=== PATIENT | female | born 1980 | race Caucasian/White ===

== ENCOUNTER 2016-05-10 08:05 | Inpatient (IN) | payer BC ==
[2016-05-10] MEDS ORDERED: Penicillin G Potassium 5 MILLUNITS in Sodium Chloride 0.9% 100 ML IV ONE (08:19)
[2016-05-10] MEDS ORDERED: Lidocaine 1% 30 ML SDV INJECT PRN (08:19)
[2016-05-10] MEDS ORDERED: Acetaminophen 325 MG Tab PO PRN (08:19)
[2016-05-10] MEDS ORDERED: Carboprost Tromethamine 250 MCG/1 ML Amp IM PRN ×2 (08:19→15:58)
[2016-05-10] MEDS ORDERED: Sodium Chloride 0.9% 10 ML Syringe FLUSH PRN ×2 (08:19→15:58)
[2016-05-10] MEDS ORDERED: Lactated Ringers 500 ML IV ONE (08:19)
[2016-05-10] MEDS ORDERED: Misoprostol 400 MCG (4 X 100 MCG TAB) RECTAL PRN ×2 (08:19→15:58)
[2016-05-10] MEDS ORDERED: fentaNYL 100 MCG/2 ML SDV IVPUSH PRN (08:19)
[2016-05-10] MEDS ORDERED: Ondansetron 4 MG/2 ML SDV IV PRN (08:19)
[2016-05-10] MEDS ORDERED: Methylergonovine 0.2 MG/1 ML Amp IM PRN (08:19)
--- NOTE | 2016-05-10 08:28 | PCM.LDHP ---
<Brielle Godoy - Last Filed: 05/10/16 08:22> L&D History of Present Illness - General Date of Service: 05/10/16 Admit Problem/Dx: Admission Diagnosis/Problem Admission Diagnosis/Problem Source of Information: Patient History Limitations: Reports: No limitations - History of Present Illness Introduction:: Patient comes in today for induction of labor. Reports not having any contractions at this point in time but has been feeling like she has had " period cramping". She also reports that she still feels like she has a yeast infection at this point in time. has been complicated by thrombocytopenia and history of genital HSV infection for which she has been taking valtrex for prophylaxis. Location, : Reports: Uterus Quality: Reports: Other (period cramp like) Severity: mild Associated Symptoms: Denies: vaginal bleeding, vaginal fluid - Related Data Allergies/Adverse Reactions: Allergies Allergy/AdvReac Type Severity Reaction Status Date / Time No Known Allergies Allergy Verified 12/09/15 09:34 Home Medications: Home Meds Vitamins 1 tab PO DAILY 02/01/15 [History] Amoxicillin 250 mg PO TID 12/09/15 [History] Docosahexanoic Acid [DHA] 1 tab PO DAILY 12/09/15 [History] Past Medical History - Past Health History Medical/Surgical History: Denies Medical/Surgical History HEENT History: Reports: None Cardiovascular History: Reports: None Respiratory History: Reports: None Gastrointestinal History: Reports: None Genitourinary History: Reports: None [employer] History: Reports: , Therapeutic (x1) : 3 Para: 1 LMP (Approximate): Other OB/BYN History: herpes, treated with Acyclovir. history of abnormal pap ~ 2002 follow up was negative Musculoskeletal History: Reports: None Neurological History: Reports: None Psychiatric History: Reports: None Endocrine/Metabolic History: Reports: None Hematologic History: Reports: None Immunologic History: Reports: None Oncologic (Cancer) History: Reports: None Dermatologic History: Reports: None - Infectious Disease History Infectious Disease History: Reports: Chicken pox, Herpes - Past Surgical History HEENT Surgical History: Reports: Oral surgery (wisdom/baby teeth extraction), Other (see below) GI Surgical History: Reports: Appendectomy Other Surgical History Comment: Denies any past surgeries. Social & Family History - Family History Family Medical History: Noncontributory Cardiac: Reports: Afib (mother), MO (Maternal grandmother and grandfather) Oncologic: Reports: Bladder (maternal grandmother), Breast (maternal grandmother ), Other (see below) (paternal grandfather unknown type) - Tobacco Use Smoking Status *Q: Former Smoker Tobacco Use Within Last Twelve Months: No Used Tobacco, but Quit: Yes Month Tobacco Last Used: 12/28/12 Second Hand Smoke Exposure: No - Caffeine Use Caffeine Use: Reports: None - Alcohol Use Days Per Week of Alcohol Use: 1 (abstains during ) Number of Drinks Per Day: 4 Total Drinks Per Week: 4 - Recreational Drug Use Recreational Drug Use: No - Sexual History Sexual History: Reports: Sexually active - Living Situation & Occupation Living situation: Reports: , with family 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) H&P Review of Systems - Review of Systems: Review Of Systems: See Below General: Denies: fever, chills HEENT: Reports: no symptoms Pulmonary: Denies: shortness of breath, wheezing, cough Cardiovascular: Denies: chest pain, palpitations Gastrointestinal: Denies: Abdominal pain, Nausea, Vomiting Genitourinary: Reports: vaginal discharge (still feels yeasty) Musculoskeletal: Reports: no symptoms Skin: Reports: no symptoms Psychiatric: Reports: no symptoms Neurological: Reports: no symptoms Immunologic: Reports: no symptoms L&D Exam - Exam Exam: See Below - Vital Signs Weight: 85.729 kg - OB Specific Contraction Intensity: Mild movement: active heart tones: present heart tones per min: 130 Heart Rate (FHR) Variability: Moderate (6-25 bmp) Presentation: Vertex - Exam General: alert, oriented HEENT: Conjunctiva clear, Pupils equal, Pupils reactive Neck: supple Lungs: Clear to auscultation, Normal respiratory effort Cardiovascular: regular rate, regular rhythm Abdomen: normal bowel sounds, soft Rectal Exam: Deferred Genitourinary: Deferred Back Exam: normal inspection, full range of motion Extremities: normal inspection. No: edema Skin: warm, dry, intact Neurological: cranial nerves intact (grossly intact) Psychiatric: alert, normal affect, normal mood - Problem List (1) Group B streptococcal bacteriuria SNOMED Code(s): 43832682 ICD Code: R82.71 - BACTERIURIA Status: Acute Current Visit: Yes (2) Genital herpes simplex SNOMED Code(s): 78359966 ICD Code: A60.00 - HERPESVIRAL INFECTION OF UROGENITAL SYSTEM, UNSPECIFIED Status: Acute Current Visit: Yes (3) Thrombocytopenia affecting SNOMED Code(s): 131090962 ICD Code: O99.119 - OTH DIS OF BLD/BLD-FORM ORG/IMMUN MECHNSM COMP PREG,UNSP TRI; D69.6 - THROMBOCYTOPENIA, UNSPECIFIED Status: Acute Current Visit: Yes (4) Rubella immune SNOMED Code(s): 392987439 ICD Code: Z78.9 - OTHER SPECIFIED HEALTH STATUS Status: Acute Current Visit: Yes (5) Short interval between pregnancies affecting in third trimester, antepartum SNOMED Code(s): 45694876, 86355772 ICD Code: O09.893 - SUPERVISION OF OTHER HIGH RISK PREGNANCIES, THIRD TRIMESTER Status: Acute Current Visit: Yes Problem List Initiated/Reviewed/Updated: Yes Assessment/Plan Comment:: 1. Induction of labor with pit 2.Thrombocytopenia affecting 3. History of herpes genitalis 4. Blood type A +, rubella immune, yeast infection, RPR nonreactive, HBsAg non reactive, HIV non reactive, GC/Chlamydia negative 5. 6. 40 weeks 0 days Plan 1. Induction with pit to start 2. Penicillin started for GBS bacturia 3. Valtrex has been used as prophylaxis of HSV infection no current infection or prodromal 4. Will treat yeast infection day 1 5. Monitor vitals and with tocometer per unit protocol 6. Will check blood work - see labs. <Mey Boothe - Last Filed: 05/10/16 13:18> L&D History of Present Illness - General Admit Problem/Dx: Patient Status Order with Admit Dx/Problem 05/10/16 08:20 Patient Status [ADT] Routine Patient Status: Admit to Inpatient Admission Diagnosis/Problem: care Reason for Admit: Induction of labor Nurse Unit Type: Labor and Delivery Admitting Physician: Mey Boothe Attending Physician: Mey Boothe Admission Diagnosis/Problem Admission Diagnosis/Problem care L&D Exam - Vital Signs Vital Signs: Last Vital Signs Temp 36.8 C 05/10/16 08:45 Pulse 72 05/10/16 09:20 Resp 16 05/10/16 09:20 BP 121/71 05/10/16 09:20 Pulse Ox - Patient Data Lab Results last 24 hrs: Laboratory Results - last 24 hr 05/10/16 Range/Units 08:35 WBC 7.8 (5.0-10.0) 10^3/uL RBC 4.20 (4.2-5.4) 10^6/uL Hgb 13.6 (12.0-16.0) g/dL Hct 39.3 (37.0-47.0) % MCV 93.6 (80-100) fL MCH 32.4 (27.0-34.0) pg MCHC 34.6 (33.0-35.0) g/dL Plt Count 125 L (150-450) 10^3/uL Result Diagrams: 05/10/16 08:35 Orders Last 24hrs: Active Orders 24 hr Category Date Time Status Patient Status [ADT] Routine ADT 05/10/16 08:20 Active Communication Order [RC] ASDIRECTED Care 05/10/16 08:20 Active Notify Provider Vital Signs OB [RC] ASDIRECTED Care 05/10/16 08:20 Active Notify Provider [RC] PRN Care 05/10/16 08:20 Active Pump Management, Intrathecal [RC] ASDIRECTED Care 05/10/16 08:19 Active Up ad Rosalind [RC] ASDIRECTED Care 05/10/16 08:20 Active Vital Signs [RC] PER UNIT ROUTINE Care 05/10/16 08:20 Active Clear Liquid Diet [DIET] Diet 05/10/16 Breakfast Active Acetaminophen [Tylenol] Med 05/10/16 08:19 Active 650 mg PO Q4H PRN Carboprost Tromethamine [Hemabate DS] Med 05/10/16 08:19 Active 250 mcg IM ASDIRECTED PRN Lactated Ringers [Ringers, Lactated] 1,000 ml Med 05/10/16 08:30 Active IV ASDIRECTED Lidocaine 1% [Xylocaine-MPF 1%] Med 05/10/16 08:19 Active 10 ml INJECT ASDIRECTED PRN Methylergonovine [Methergine] Med 05/10/16 08:19 Active 0.2 mg IM ASDIRECTED PRN Misoprostol [Cytotec] Med 05/10/16 08:19 Active 800 mcg RECTAL ASDIRECTED PRN Ondansetron [Zofran] Med 05/10/16 08:19 Active 4 mg IV Q4H PRN Oxytocin/Normal Saline [Pitocin in NS 30 UNIT/500 ML] Med 05/10/16 08:45 Active 30 unit in 500 ml IV TITRATE Penicillin G Potassium [Pfizerpen] 3 millunits Med 05/10/16 12:00 Active Sodium Chloride 0.9% [Normal Saline] 100 ml IV Q4H Sodium Chloride 0.9% [Saline Flush] Med 05/10/16 08:19 Active 10 ml FLUSH ASDIRECTED PRN fentaNYL [Sublimaze] Med 05/10/16 08:19 Active 50 mcg IVPUSH Q1H PRN Saline Lock Insert [OM.PC] Routine Oth 05/10/16 08:20 Ordered Resuscitation Status Routine Resus Stat 05/10/16 08:19 Ordered Medication Orders Acetaminophen (Tylenol) 650 mg PO Q4H PRN PRN Reason: Pain (Mild 1-3) and fever Carboprost Tromethamine (Hemabate Ds) 250 mcg IM ASDIRECTED PRN PRN Reason: HEMORRHAGE Fentanyl (Sublimaze) 50 mcg IVPUSH Q1H PRN PRN Reason: Pain (moderate 4-6) Lactated Ringer's (Ringers, Lactated) 1,000 mls @ 125 mls/hr IV ASDIRECTED YAHIR Last Admin: 05/10/16 09:05 Dose: 125 mls/hr Penicillin G Potassium 3 (millunits/ Sodium Chloride) 100 mls @ 200 mls/hr IV Q4H YAHIR Last Admin: 05/10/16 13:01 Dose: 200 mls/hr Oxytocin/Sodium Chloride (Pitocin In Ns 30 Unit/500 Ml) 30 unit in 500 mls @ 2 mls/hr IV TITRATE YAHIR; 2 MUNITS/MIN PRN Reason: Protocol Last Titration: 05/10/16 12:43 Dose: 9 munits/min, 9 mls/hr Titration: 05/10/16 11:30 Dose: 8 munits/min, 8 mls/hr Titration: 05/10/16 11:00 Dose: 6 munits/min, 6 mls/hr Titration: 05/10/16 10:25 Dose: 4 munits/min, 4 mls/hr Admin: 05/10/16 09:46 Dose: 2 munits/min, 2 mls/hr Lidocaine HCl (Xylocaine-Mpf 1%) 10 ml INJECT ASDIRECTED PRN PRN Reason: Perineal Repair Methylergonovine Maleate (Methergine) 0.2 mg IM ASDIRECTED PRN PRN Reason: Hemorrhage Misoprostol (Cytotec) 800 mcg RECTAL ASDIRECTED PRN PRN Reason: Hemorrhage Ondansetron HCl (Zofran) 4 mg IV Q4H PRN PRN Reason: Nausea/Vomiting Sodium Chloride (Saline Flush) 10 ml FLUSH ASDIRECTED PRN PRN Reason: Keep Vein Open Assessment/Plan Comment:: Agree with student assessment and plan. IOL for discomfort of , thrombocytopenia and term . Platelets today 125,000. Will plan to AROM 4 hours after patient received her 1st dose of PCN for GBS. Anticipate vaginal delivery. Mey Boothe MD
[2016-05-10] MEDS ORDERED: Oxytocin/Normal Saline 30 UNIT/500 ML BAG IV SCH (08:45)
[2016-05-10] MEDS: Lactated Ringers 1,000 ML IV SCH ×2 (09:05→14:05)
[2016-05-10] MEDS ORDERED: Penicillin G Potassium 3 MILLUNITS in Sodium Chloride 0.9% 100 ML IV SCH (12:00)
[2016-05-10] MEDS ORDERED: Benzocaine/Menthol 20%-0.5% Spray 56 GM Canister TOP PRN (15:58)
[2016-05-10] MEDS ORDERED: Oxytocin 10 Units/1 ML SDV IM PRN (15:58)
[2016-05-10] MEDS ORDERED: Methylergonovine 0.2 MG Tab PO PRN (15:58)
[2016-05-10] MEDS ORDERED: Ibuprofen 800 MG Tab PO PRN (15:58)
[2016-05-10] MEDS ORDERED: Simethicone 80 MG Tab.Chew PO PRN (15:58)
--- NOTE | 2016-05-10 15:58 | PCM.DEL ---
L & D Note - General Info Date of Service: 05/10/16 Mother's Due Date: 05/10/16 - Delivery Note Labor: augmented by ARM, induced by oxytocin Delivery Outcome: Livebirth Delivery Method: Spontaneous Vaginal Delivery Presentation: Left Occiput Anterior (RAQUEL) Nuchal cord: none Anesthesia Type: Intrathecal Amniotic Fluid Description: Clear Episiotomy Type: None Laceration: 1st degree, labial (Left superior), perineal Suture type: vicryl Suture size: 3-0 Placenta: intact, spontaneous Cord: 3 vessels Estimated blood loss: 225 Resuscitation needed: Yes : bulb syringe, stimulated, warmed Score 1 min: 5 Score 5 min: 8 Delivery Comments (Free Text/Narrative):: 35-year-old, now , presented for induction of labor at 40w0d. Pitocin was started for induction of labor. PCN was started as patient had a GBS+ UTI during her . After 4 hours of PCN and pitocin, AROM was performed to augment labor. Clear amniotic fluid was noted. Patient progressed to complete dilation over the next 3-4 hours. Upon reaching complete dilation, patient pushed for about 15 minutes and delivered a viable male . Baby was taken to the warmer and was resuscitated. Apgars were 5 and 8 at 1 and 5 minutes respectively. Baby was returned to mom for skin to skin a short time later. Placenta delivered intact and spontaneously a short time later. Bleeding was initially brisk, but improved significantly with pitocin and uterine massage. A figure-of-8 suture was used to repeat a superior left labial laceration. A second figure-of-8 suture was used to repair a first degree perineal laceration. Bleeding was again noted to be appropriate. There were no complications. Mey Boothe MD Induction Criteria - Bullock Score Bullock Score Dilation: 3-4 cm Bullock Score Effacement: 60-70% Bullock Score 's Station: -2 Bullock Score Consistency: Soft Bullock Score Cervix Position: Posterior Bullock Score Total: 7 Bullock Score Presenting Part: Reports: Cephalic - Induction Gestational Age >/= 39 wks: Yes Estimated pelvis: Reports: Adequate Reassuring monitoring strip: Yes Absence of tachy systole: Yes - Augmentation Estimated Pelvis: Reports: Adequate weight estimated:: Reports: AGA Reassuring monitoring strip: Yes Absence of tachy systole: Yes - General Info Date of Service: 05/11/16 - Patient Data Vitals - most recent: Last Vital Signs Temp 36.4 C 05/10/16 11:30 Pulse 65 05/10/16 11:30 Resp 16 05/10/16 11:30 BP 121/65 05/10/16 11:30 Pulse Ox Weight - most recent: 85.729 kg I&O - last 24 hours: Intake & Output 05/10/16 05/10/16 05/10/16 06:59 14:59 22:59 Intake Total 100 Balance 100 Lab Results last 24 hrs: Laboratory Results - last 24 hr 05/10/16 Range/Units 08:35 WBC 7.8 (5.0-10.0) 10^3/uL RBC 4.20 (4.2-5.4) 10^6/uL Hgb 13.6 (12.0-16.0) g/dL Hct 39.3 (37.0-47.0) % MCV 93.6 (80-100) fL MCH 32.4 (27.0-34.0) pg MCHC 34.6 (33.0-35.0) g/dL Plt Count 125 L (150-450) 10^3/uL Med Orders - Current: Current Medications Acetaminophen (Tylenol) 650 mg PO Q4H PRN PRN Reason: Pain (Mild 1-3) and fever Carboprost Tromethamine (Hemabate Ds) 250 mcg IM ASDIRECTED PRN PRN Reason: HEMORRHAGE Fentanyl (Sublimaze) 50 mcg IVPUSH Q1H PRN PRN Reason: Pain (moderate 4-6) Lactated Ringer's (Ringers, Lactated) 1,000 mls @ 125 mls/hr IV ASDIRECTED YAHIR Last Admin: 05/10/16 14:05 Dose: 125 mls/hr Penicillin G Potassium 3 (millunits/ Sodium Chloride) 100 mls @ 200 mls/hr IV Q4H YAHIR Last Admin: 05/10/16 13:01 Dose: 200 mls/hr Oxytocin/Sodium Chloride (Pitocin In Ns 30 Unit/500 Ml) 30 unit in 500 mls @ 2 mls/hr IV TITRATE YAHIR; 2 MUNITS/MIN PRN Reason: Protocol Last Titration: 05/10/16 13:24 Dose: 11 munits/min, 11 mls/hr Lidocaine HCl (Xylocaine-Mpf 1%) 10 ml INJECT ASDIRECTED PRN PRN Reason: Perineal Repair Methylergonovine Maleate (Methergine) 0.2 mg IM ASDIRECTED PRN PRN Reason: Hemorrhage Misoprostol (Cytotec) 800 mcg RECTAL ASDIRECTED PRN PRN Reason: Hemorrhage Ondansetron HCl (Zofran) 4 mg IV Q4H PRN PRN Reason: Nausea/Vomiting Sodium Chloride (Saline Flush) 10 ml FLUSH ASDIRECTED PRN PRN Reason: Keep Vein Open Discontinued Medications Lactated Ringer's (Ringers, Lactated) 500 mls @ 999 mls/hr IV .BOLUS ONE Stop: 05/10/16 08:49 Penicillin G Potassium 5 (millunits/ Sodium Chloride) 100 mls @ 200 mls/hr IV ONETIME ONE Stop: 05/10/16 08:48 Last Admin: 05/10/16 09:10 Dose: 200 mls/hr - Problem List Review Problem List Initiated/Reviewed/Updated: Yes - My Orders Last 24 Hours: My Active Orders 05/10/16 08:19 Pump Management, Intrathecal [RC] ASDIRECTED Acetaminophen [Tylenol] 650 mg PO Q4H PRN Carboprost Tromethamine [Hemabate DS] 250 mcg IM ASDIRECTED PRN Lidocaine 1% [Xylocaine-MPF 1%] 10 ml INJECT ASDIRECTED PRN Methylergonovine [Methergine] 0.2 mg IM ASDIRECTED PRN Misoprostol [Cytotec] 800 mcg RECTAL ASDIRECTED PRN Ondansetron [Zofran] 4 mg IV Q4H PRN Sodium Chloride 0.9% [Saline Flush] 10 ml FLUSH ASDIRECTED PRN fentaNYL [Sublimaze] 50 mcg IVPUSH Q1H PRN Resuscitation Status Routine 05/10/16 08:20 Patient Status [ADT] Routine Communication Order [RC] ASDIRECTED Notify Provider Vital Signs OB [RC] ASDIRECTED Notify Provider [RC] PRN Up ad Rosalind [RC] ASDIRECTED Vital Signs [RC] PER UNIT ROUTINE Saline Lock Insert [OM.PC] Routine 05/10/16 08:30 Lactated Ringers [Ringers, Lactated] 1,000 ml IV ASDIRECTED 05/10/16 08:45 Oxytocin/Normal Saline [Pitocin in NS 30 UNIT/500 ML] 30 unit in 500 ml IV TITRATE 05/10/16 12:00 Penicillin G Potassium [Pfizerpen] 3 millunits Sodium Chloride 0.9% [Normal Saline] 100 ml IV Q4H 05/10/16 Breakfast Clear Liquid Diet [DIET] - Assessment Assessment:: 35-year-old now status post normal spontaneous vaginal delivery. --Left labial laceration and 1st degree perineal laceration repaired - Plan Plan:: 1. Initiate routine cares\ 2. consultation for desire to breastfeed 3. Will treat with Diflucan tomorrow for yeast infection 4. Will repeat CBC tomorrow to assess platelets. 5. Anticipate discharge 05/12/16, although patient is considering discharge at 24 hours. Mey Boothe MD
[2016-05-10] MEDS: Docusate Sodium 100 MG Cap PO PRN (23:58)
[2016-05-11] MEDS: Docusate Sodium 100 MG Cap PO PRN (08:42)
[2016-05-11] MEDS ORDERED: Prenatal Multivitamin with Calcium/Folic Acid/Iron Tab PO SCH (09:00)
[2016-05-11 09:02] VITALS: BP 103/54
--- NOTE | 2016-05-11 12:52 | PCM.DCSUM1 ---
<Brielle Godoy - Last Filed: 05/11/16 12:47> Discharge Summary - Hospital Course Free Text/Narrative:: patient is now a that delivered via vaginal delivery with pitocin induction at 40 weeks 0 days gestation. was complicated by HSV genitalis prophylactically treated with valtrex and Thrombocytopenia which will be followed up at her visit to ensure levels have normalized, Platelets as of 05/11/16 at 0605 were 104. Other than that hospital course was uncomplicated. - Discharge Data Discharge Date: 05/11/16 Discharge Disposition: Home, Self-Care 01 Condition: Good - Discharge Diagnosis/Problem(s) (1) Group B streptococcal bacteriuria SNOMED Code(s): 85589578 ICD Code: R82.71 - BACTERIURIA Status: Acute Current Visit: Yes (2) Genital herpes simplex SNOMED Code(s): 93048691 ICD Code: A60.00 - HERPESVIRAL INFECTION OF UROGENITAL SYSTEM, UNSPECIFIED Status: Acute Current Visit: Yes (3) Thrombocytopenia affecting SNOMED Code(s): 359626924 ICD Code: O99.119 - OTH DIS OF BLD/BLD-FORM ORG/IMMUN MECHNSM COMP PREG,UNSP TRI; D69.6 - THROMBOCYTOPENIA, UNSPECIFIED Status: Acute Current Visit: Yes (4) Rubella immune SNOMED Code(s): 649054321 ICD Code: Z78.9 - OTHER SPECIFIED HEALTH STATUS Status: Acute Current Visit: Yes (5) Short interval between pregnancies affecting in third trimester, antepartum SNOMED Code(s): 84717335, 77608229 ICD Code: O09.893 - SUPERVISION OF OTHER HIGH RISK PREGNANCIES, THIRD TRIMESTER Status: Acute Current Visit: Yes - Patient Summary/Data Consults: Consultations 05/10/16 16:04 Consult to Fabrication Mig Welder [CONS] Routine - Patient Instructions Diet: Regular Diet as Tolerated Activity: As Tolerated Driving: Do Not Drive Showering/Bathing: May Shower Notify Provider of: Fever, Increased Pain, Swelling and Redness, Drainage, Nausea and/or Vomiting - Discharge Plan Home Medications: Home Meds Vitamins 1 tab PO DAILY 02/01/15 [History] Acetaminophen [Tylenol] 650 mg PO Q4H PRN #0 tablet 05/11/16 [Rx] Docusate Sodium [Colace] 100 mg PO BID PRN #0 cap 05/11/16 [Rx] Ibuprofen [IJD: Ibuprofen] 800 mg PO Q8H PRN #0 tablet 05/11/16 [Rx] Referrals: Mey Boothe MD [Physician] - (6 weeks for check) - General Info Date of Service: 05/11/16 Admission Dx/Problem (Free Text: Patient Status Order with Admit Dx/Problem 05/10/16 08:20 Patient Status [ADT] Routine Patient Status: Admit to Inpatient Admission Diagnosis/Problem: care Reason for Admit: Induction of labor Nurse Unit Type: Labor and Delivery Admitting Physician: Mey Boothe Attending Physician: Mey Boothe Admission Diagnosis/Problem Admission Diagnosis/Problem care Subjective Update: Patient has been doing well overnight. No complaints. Would like to sleep at home today. Functional Status: Reports: pain controlled, tolerating diet, ambulating, urinating - Review of Systems General: Denies: fever, chills HEENT: Reports: no symptoms Pulmonary: Denies: shortness of breath, cough, wheezing Cardiovascular: Reports: no symptoms. Denies: edema Gastrointestinal: Denies: Nausea, Vomiting Genitourinary: Reports: no symptoms Musculoskeletal: Reports: no symptoms Skin: Reports: no symptoms Neurological: Reports: no symptoms Psychiatric: Reports: no symptoms - Patient Data Vitals - Most Recent: Last Vital Signs Temp 97.6 F 05/11/16 08:00 Pulse 61 05/11/16 08:00 Resp 16 05/11/16 08:00 BP 103/54 L 05/11/16 08:00 Pulse Ox 99 05/10/16 19:38 Weight - Most Recent: 85.729 kg I&O - Last 24 hours: Intake & Output 05/10/16 05/11/16 05/11/16 22:59 06:59 14:59 Intake Total 1300 Output Total 200 1000 Balance 1100 -1000 Lab Results - Last 24 hrs: Laboratory Results - last 24 hr 05/11/16 Range/Units 06:05 WBC 10.4 H (5.0-10.0) 10^3/uL RBC 3.70 L (4.2-5.4) 10^6/uL Hgb 11.7 L (12.0-16.0) g/dL Hct 35.0 L (37.0-47.0) % MCV 94.6 (80-100) fL MCH 31.6 (27.0-34.0) pg MCHC 33.4 (33.0-35.0) g/dL Plt Count 104 L (150-450) 10^3/uL Neut % (Auto) 75.9 H (42.2-75.2) % Lymph % (Auto) 15.9 L (20.5-50.1) % [place] % (Auto) 6.9 (2-8) % Eos % (Auto) 1.1 (1.0-3.0) % Baso % (Auto) 0.2 (0.0-1.0) % Med Orders - Current: Current Medications Acetaminophen (Tylenol) 650 mg PO Q4H PRN PRN Reason: Pain (Mild 1-3) and fever Benzocaine/Menthol (Dermoplast Pain Relief Anthon) 0 gm TOP Q4H PRN PRN Reason: Perineal comfort measures Last Admin: 05/10/16 18:26 Dose: 1 sprays Carboprost Tromethamine (Hemabate Ds) 250 mcg IM ASDIRECTED PRN PRN Reason: Excessive vaginal bleeding Docusate Sodium (Colace) 100 mg PO BID PRN PRN Reason: Constipation Last Admin: 05/11/16 08:42 Dose: 100 mg Oxytocin/Sodium Chloride (Pitocin In Ns 30 Unit/500 Ml) 30 unit in 500 mls @ 2 mls/hr IV TITRATE YAHIR; 2 MUNITS/MIN PRN Reason: Protocol Last Titration: 05/10/16 18:27 Dose: Infused Ibuprofen (Motrin) 800 mg PO Q8H PRN PRN Reason: Mild Pain or Fever Methylergonovine Maleate (Methergine) 0.2 mg PO Q8HR PRN PRN Reason: excessive vaginal bleeding Misoprostol (Cytotec) 800 mcg RECTAL ONETIME PRN PRN Reason: Hemorrhage Oxytocin (Pitocin) 10 unit IM ONETIME PRN PRN Reason: Bleeding Prenat Multivit/Punch Card Operator/Iron/Folic Ac ( Plus Iron) 1 each PO DAILY YAHIR Last Admin: 05/11/16 08:42 Dose: 1 each Simethicone (Simethicone) 80 mg PO Q4H PRN PRN Reason: Gas Sodium Chloride (Saline Flush) 10 ml FLUSH ASDIRECTED PRN PRN Reason: Keep Vein Open Sodium Chloride (Saline Flush) 10 ml FLUSH ASDIRECTED PRN PRN Reason: Keep Vein Open Last Admin: 05/10/16 18:29 Dose: 10 ml Discontinued Medications Carboprost Tromethamine (Hemabate Ds) 250 mcg IM ASDIRECTED PRN PRN Reason: HEMORRHAGE Fentanyl (Sublimaze) 50 mcg IVPUSH Q1H PRN PRN Reason: Pain (moderate 4-6) Last Admin: 05/10/16 15:10 Dose: 50 mcg Lactated Ringer's (Ringers, Lactated) 500 mls @ 999 mls/hr IV .BOLUS ONE Stop: 05/10/16 08:49 Last Admin: 05/10/16 14:40 Dose: 999 mls/hr Lactated Ringer's (Ringers, Lactated) 1,000 mls @ 125 mls/hr IV ASDIRECTED YAHIR Last Admin: 05/10/16 14:05 Dose: 125 mls/hr Penicillin G Potassium 5 (millunits/ Sodium Chloride) 100 mls @ 200 mls/hr IV ONETIME ONE Stop: 05/10/16 08:48 Last Admin: 05/10/16 09:10 Dose: 200 mls/hr Penicillin G Potassium 3 (millunits/ Sodium Chloride) 100 mls @ 200 mls/hr IV Q4H [facility] Last Admin: 05/10/16 13:01 Dose: 200 mls/hr Lidocaine HCl (Xylocaine-Mpf 1%) 10 ml INJECT ASDIRECTED PRN PRN Reason: Perineal Repair Methylergonovine Maleate (Methergine) 0.2 mg IM ASDIRECTED PRN PRN Reason: Hemorrhage Misoprostol (Cytotec) 800 mcg RECTAL ASDIRECTED PRN PRN Reason: Hemorrhage Ondansetron HCl (Zofran) 4 mg IV Q4H PRN PRN Reason: Nausea/Vomiting Last Admin: 05/10/16 14:40 Dose: 4 mg Comments:: Will follow up clinically for thrombocytopenia - Exam General: Reports: alert, oriented, cooperative, no acute distress HEENT: Reports: Pupils equal, EOMI, Mucous membr. moist/pink Neck: Reports: supple Lungs: Reports: Clear to auscultation, Normal respiratory effort Cardiovascular: Reports: regular rate, regular rhythm Abdomen: Reports: bowel sounds present, soft, no distension Back Exam: Reports: normal inspection, full range of motion Extremities: Reports: no edema, normal pulses. Denies: edema Skin: Reports: warm, dry, intact Wound/Incisions: Reports: healing well Neurological: Reports: no new focal deficit Psy/Mental Status: Reports: alert, normal affect, normal mood *Q Meaningful Use (DIS) - VTE *Q VTE Criteria *Q: - Stroke *Q Stroke Criteria *Q: - AMI *Q AMI Criteria *Q: <Mey Boothe - Last Filed: 05/11/16 13:05> Discharge Summary - Discharge Diagnosis/Problem(s) (1) (normal spontaneous vaginal delivery) SNOMED Code(s): 37540979 ICD Code: O80 - ENCOUNTER FOR FULL-TERM UNCOMPLICATED DELIVERY Status: Acute Current Visit: Yes (2) Obstetric labial laceration, delivered, current hospitalization SNOMED Code(s): 568989037, 160827612 ICD Code: O70.0 - FIRST DEGREE PERINEAL LACERATION DURING DELIVERY Status: Acute Current Visit: Yes (3) Perineal laceration SNOMED Code(s): 325113976 ICD Code: S31.41XA - LACERATION W/O FOREIGN BODY OF VAGINA AND VULVA, INIT ENCNTR Status: Acute Current Visit: Yes - Patient Summary/Data Consults: Consultations 05/10/16 16:04 Consult to Fabrication Mig Welder [CONS] Routine - Discharge Summary/Plan Comment Discharge Summary/Plan Comment: Agree with student assessment and plan. Patient is doing very well PPD#1. Minimal pain, bleeding is minimal and no issue with bowel or bladder function. She feels her milk is coming in. She has no questions or concerns. Will discharge home with follow-up in 6 weeks or sooner as needed. Mey Boothe MD - Patient Data Vitals - Most Recent: Last Vital Signs Temp 36.4 C 05/11/16 08:00 Pulse 61 05/11/16 08:00 Resp 16 05/11/16 08:00 BP 103/54 L 05/11/16 08:00 Pulse Ox 99 05/10/16 19:38 I&O - Last 24 hours: Intake & Output 05/10/16 05/11/16 05/11/16 22:59 06:59 14:59 Intake Total 1300 Output Total 200 1000 Balance 1100 -1000 Lab Results - Last 24 hrs: Laboratory Results - last 24 hr 05/11/16 Range/Units 06:05 WBC 10.4 H (5.0-10.0) 10^3/uL RBC 3.70 L (4.2-5.4) 10^6/uL Hgb 11.7 L (12.0-16.0) g/dL Hct 35.0 L (37.0-47.0) % MCV 94.6 (80-100) fL MCH 31.6 (27.0-34.0) pg MCHC 33.4 (33.0-35.0) g/dL Plt Count 104 L (150-450) 10^3/uL Neut % (Auto) 75.9 H (42.2-75.2) % Lymph % (Auto) 15.9 L (20.5-50.1) % [place] % (Auto) 6.9 (2-8) % Eos % (Auto) 1.1 (1.0-3.0) % Baso % (Auto) 0.2 (0.0-1.0) % Med Orders - Current: Current Medications Acetaminophen (Tylenol) 650 mg PO Q4H PRN PRN Reason: Pain (Mild 1-3) and fever Benzocaine/Menthol (Dermoplast Pain Relief Anthon) 0 gm TOP Q4H PRN PRN Reason: Perineal comfort measures Last Admin: 05/10/16 18:26 Dose: 1 sprays Carboprost Tromethamine (Hemabate Ds) 250 mcg IM ASDIRECTED PRN PRN Reason: Excessive vaginal bleeding Docusate Sodium (Colace) 100 mg PO BID PRN PRN Reason: Constipation Last Admin: 05/11/16 08:42 Dose: 100 mg Fluconazole (Diflucan) 150 mg PO DAILY YAHIR Oxytocin/Sodium Chloride (Pitocin In Ns 30 Unit/500 Ml) 30 unit in 500 mls @ 2 mls/hr IV TITRATE YAHIR; 2 MUNITS/MIN PRN Reason: Protocol Last Titration: 05/10/16 18:27 Dose: Infused Ibuprofen (Motrin) 800 mg PO Q8H PRN PRN Reason: Mild Pain or Fever Methylergonovine Maleate (Methergine) 0.2 mg PO Q8HR PRN PRN Reason: excessive vaginal bleeding Misoprostol (Cytotec) 800 mcg RECTAL ONETIME PRN PRN Reason: Hemorrhage Oxytocin (Pitocin) 10 unit IM ONETIME PRN PRN Reason: Bleeding Prenat Multivit/[place]/Iron/Folic Ac ( Plus Iron) 1 each PO DAILY [facility] Last Admin: 05/11/16 08:42 Dose: 1 each Simethicone (Simethicone) 80 mg PO Q4H PRN PRN Reason: Gas Sodium Chloride (Saline Flush) 10 ml FLUSH ASDIRECTED PRN PRN Reason: Keep Vein Open Sodium Chloride (Saline Flush) 10 ml FLUSH ASDIRECTED PRN PRN Reason: Keep Vein Open Last Admin: 05/10/16 18:29 Dose: 10 ml Discontinued Medications Carboprost Tromethamine (Hemabate Ds) 250 mcg IM ASDIRECTED PRN PRN Reason: HEMORRHAGE Fentanyl (Sublimaze) 50 mcg IVPUSH Q1H PRN PRN Reason: Pain (moderate 4-6) Last Admin: 05/10/16 15:10 Dose: 50 mcg Lactated Ringer's (Ringers, Lactated) 500 mls @ 999 mls/hr IV .BOLUS ONE Stop: 05/10/16 08:49 Last Admin: 05/10/16 14:40 Dose: 999 mls/hr Lactated Ringer's (Ringers, Lactated) 1,000 mls @ 125 mls/hr IV ASDIRECTED [facility] Last Admin: 05/10/16 14:05 Dose: 125 mls/hr Penicillin G Potassium 5 (millunits/ Sodium Chloride) 100 mls @ 200 mls/hr IV ONETIME ONE Stop: 05/10/16 08:48 Last Admin: 05/10/16 09:10 Dose: 200 mls/hr Penicillin G Potassium 3 (millunits/ Sodium Chloride) 100 mls @ 200 mls/hr IV Q4H [facility] Last Admin: 05/10/16 13:01 Dose: 200 mls/hr Lidocaine HCl (Xylocaine-Mpf 1%) 10 ml INJECT ASDIRECTED PRN PRN Reason: Perineal Repair Methylergonovine Maleate (Methergine) 0.2 mg IM ASDIRECTED PRN PRN Reason: Hemorrhage Misoprostol (Cytotec) 800 mcg RECTAL ASDIRECTED PRN PRN Reason: Hemorrhage Ondansetron HCl (Zofran) 4 mg IV Q4H PRN PRN Reason: Nausea/Vomiting Last Admin: 05/10/16 14:40 Dose: 4 mg *Q Meaningful Use (DIS) - VTE *Q VTE Criteria *Q: - Stroke *Q Stroke Criteria *Q: - AMI *Q AMI Criteria *Q:
[2016-05-11] MEDS ORDERED: Fluconazole 100 MG Tab PO SCH (13:00)
== END 2016-05-11 17:30 | disposition home or self-care (01) | DRG 560 ==
LOC: DL.OBCHECK 08:05 → DL.OB 08:25 → OBSVTOIN 15:36 → DL.OB 15:36
PROVIDERS: ADMIT Family Medicine; ATTEND Family Medicine
PROC: 3E033VJ Introduction of Other Hormone into Peripheral Vein, Percutaneous Approach (ICD-10-PCS; principal; 2016-05-10)
PROC: 10E0XZZ Delivery of Products of Conception, External Approach (ICD-10-PCS; 2016-05-10)
PROC: 0UQMXZZ Repair Vulva, External Approach (ICD-10-PCS; 2016-05-10)
PROC: 4A1HXFZ Monitoring of Products of Conception, Cardiac Rhythm, External Approach (ICD-10-PCS; 2016-05-10)
PROC: 3E0S3BZ Introduction of Anesthetic Agent into Epidural Space, Percutaneous Approach (ICD-10-PCS; 2016-05-10)
DX: O99.119 Other diseases of the blood and blood-forming organs and certain disorders involving the immune mechanism complicating pregnancy, unspecified trimester (principal); Z3A.40 40 weeks gestation of pregnancy; Z37.0 Single live birth; O70.0 First degree perineal laceration during delivery; O99.824 Streptococcus B carrier state complicating childbirth; O86.20 Urinary tract infection following delivery, unspecified; Z87.891 Personal history of nicotine dependence; Z87.42 Personal history of other diseases of the female genital tract
CPT/HCPCS: 36415; 85025; 85027; A9270-GY; J2405; J2540; J2590; J3010; J7050; J7120